=== PATIENT | male | born 1990 | race Caucasian/White ===

== ENCOUNTER 2018-05-06 14:08 | Outpatient (CLI) | payer MEDICAID ==
[2018-05-06 14:41] LABS: BASOPHILS % (AUTO) 0.2 %; EOSINOPHILS # (AUTO) 0.1 10^3/uL (0.0-0.7); EOSINOPHILS % (AUTO) 0.7 %; HGB - HEMOGLOBIN 14.2 g/dL (14.0-18.0); LYMPHOCYTES # (AUTO) 3.2 10^3/uL (1.5-3.5); LYMPHOCYTES % (AUTO) 29.8 %; MEAN CORPUSCULAR HEMOGLOBIN 31.5 pg (27.0-31.0); MEAN CORPUSCULAR HGB CONC 34.5 g/dL (32.0-36.0); MEAN CORPUSCULAR VOLUME 91.4 fL (80.0-94.0); MEAN PLATELET VOLUME 8.1 fL (7.4-11.4); MONOCYTES # (AUTO) 1.1 10^3/uL (0.0-1.0); MONOCYTES % (AUTO) 9.8 %; NEUTROPHILS # (AUTO) 6.4 10^3/uL (1.5-6.6); NEUTROPHILS % (AUTO) 59.5 %; PLT - PLATELET COUNT 261 10^3/uL (130-450); RED BLOOD COUNT 4.49 10^6/uL (4.70-6.10); RED CELL DISTRIBUTION WIDTH 12.4 % (12.0-15.0); WHITE BLOOD COUNT 10.7 x10^3/uL (4.8-10.8)
[2018-05-06 14:53] LABS: ALBUMIN 4.3 g/dL (3.2-5.5); ALBUMIN/GLOBULIN RATIO 1.4 (1.0-2.2); BILIRUBIN,TOTAL 0.8 mg/dL (0.2-1.0); CALCIUM 9.4 mg/dL (8.5-10.3); CREATININE 0.9 mg/dL (0.6-1.2); TOTAL PROTEIN 7.3 g/dL (6.7-8.2)
[2018-05-07 10:46] LABS: HEPATITIS B SURFACE ANTIGEN NON-REACTIVE (NON-REACTIVE)
== END 2018-05-06 14:09 | disposition home or self-care (01) ==
LOC: LAB 14:08
PROVIDERS: ATTEND Nurse Practitioner Family
DX: Z11.3 Encounter for screening for infections with a predominantly sexual mode of transmission (principal); Z13.228 Encounter for screening for other metabolic disorders; Z11.59 Encounter for screening for other viral diseases
CPT/HCPCS: 36415; 80053; 81599; 85025; 86592; 86705; 86706; 86709; 86803; 87340

== ENCOUNTER 2018-05-25 20:44 | Emergency (ER) | payer MEDICAID ==
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
[2018-05-25 22:03] VITALS: BP 141/88
== END 2018-05-25 22:26 | disposition home or self-care (01) ==
LOC: ED 20:44
DX: S50.812A Abrasion of left forearm, initial encounter (principal); S60.222A Contusion of left hand, initial encounter; V49.9XXA Car occupant (driver) (passenger) injured in unspecified traffic accident, initial encounter
CPT/HCPCS: 99282; 99283

== ENCOUNTER 2018-06-24 08:00 | Outpatient (CLI) | payer MEDICAID, OTHER ==
[2018-06-25 12:41] LABS: HEPATITIS C ANTIBODY NON-REACTIVE (NON-REACTIVE)
[2018-06-25 14:21] LABS: HEPATITIS B SURFACE ANTIGEN NON-REACTIVE (NON-REACTIVE)
== END 2018-06-24 08:01 | disposition home or self-care (01) ==
LOC: LAB.N 08:00
PROVIDERS: ATTEND Nurse Practitioner Family
DX: Z11.59 Encounter for screening for other viral diseases (principal)
CPT/HCPCS: 36415; 81599; 86317; 86704; 86709; 86803; 87340

== ENCOUNTER 2019-06-16 17:17 | Emergency (ER) | payer MEDICAID ==
[2019-06-16 17:34] VITALS: BP 126/93
--- NOTE | 2019-06-16 18:08 | ED Physician Documentation ---
PD HPI SKIN - Stated complaint Stated Complaint: RASH - Chief complaint Chief Complaint: Wound - History obtained from History obtained from: Patient - History of Present Illness Timing - onset: Other (He has an itchy rash for the last 2 days on both arms and both legs. He is worried about shingles which he has had once before.) Review of Systems Constitutional: reports: Reviewed and negative Throat: reports: Reviewed and negative Cardiac: reports: Reviewed and negative PD PAST MEDICAL HISTORY - Past Medical History Past Medical History: No - Past Surgical History Past Surgical History: No - Present Medications Home Medications: Ambulatory Orders Medication Instructions Recorded Confirmed Permethrin 5% Cream 1 applic TOP ONCE #2 tube 06/16/19 - Allergies Allergies/Adverse Reactions: Allergies Allergy/AdvReac Type Severity Reaction Status Date / Time No Known Drug Allergies Allergy Verified 06/16/19 17:31 - Social History Does the pt smoke?: No Smoking Status: Never smoker Does the pt drink ETOH?: No Does the pt have substance abuse?: No - Immunizations Immunizations are current?: Yes - POLST Patient has POLST: No PD ED PE NORMAL - Vitals Vital signs reviewed: Yes - General General: Alert and oriented X 3, No acute distress - Derm Derm: Other (Very mild rash on the wrist flexor creases and the ankles, could be consistent with scabies, definitely not consistent with shingles.) - Neuro Neuro: Alert and oriented X 3, Normal speech Results - Vitals Vitals: Vital Signs - 24 hr 06/16/19 17:31 Temperature 36.9 C Heart Rate 105 H Respiratory 15 Rate Blood Pressure 126/93 H O2 Saturation 95 Oxygen O2 Source Room air Departure - Departure Disposition: Home, Self Care Clinical Impression: Scabies Condition: Good Record reviewed to determine appropriate education?: Yes Instructions: ED Scabies Prescriptions: Permethrin 5% Cream 1 applic TOP ONCE #2 tube Comments: As discussed, in no way shape or form is this rash consistent with shingles thankfully. It could be scabies and that is what we are treating for. Return if worse. Follow-up with your doctor in a week.
== END 2019-06-16 18:10 | disposition home or self-care (01) ==
LOC: ED 17:17
DX: B86 Scabies (principal)
CPT/HCPCS: 99282; 99283